=== PATIENT | female | born 1975 | race American Indian/Alaskan Native ===

== ENCOUNTER 2016-10-17 08:42 | Outpatient (CLI) | payer OTHER ==
[2016-10-17] MEDS ORDERED: NACL ONE (09:23)
--- NOTE | 2016-10-17 10:02 | Cat Scan Report ---
CT CHEST WITH CONTRAST: HISTORY: Lung nodule. TECHNIQUE: Helical CT following IV contrast. Sagittal and coronal reformatted images. FINDINGS: There are scattered small calcified granulomas in the lingula and middle lobe. No suspicious pulmonary nodule or mass. Heart size is normal. There is no evidence of adenopathy within the mediastinum. Pulmonary teresa are free of any mass and the lungs are clear of infiltrates. The pleura is unremarkable. No masses involve the chest wall. No abnormalities are noted within the upper abdomen. The adrenal glands are normal. IMPRESSION: Chronic granulomatous disease. No suspicious pulmonary nodule. Otherwise, unremarkable CT chest with contrast.
--- NOTE | 2016-10-17 10:59 | Mammography Report ---
BILATERAL MAMMOGRAM with CAD: HISTORY: Baseline cancer screening. FINDINGS: The breast tissue is extremely dense (>75% glandular). This may lower the sensitivity of mammography. No mass, distortion, suspicious calcification, or skin change is seen. IMPRESSION: Negative mammogram. There is no mammographic evidence of malignancy. RECOMMENDATION: Follow-up per ACS guidelines. BI-RADS CATEGORY: 1 = Negative ACR BI-RADS MAMMOGRAPHIC CODES: 0 = Needs additional imaging evaluation; 1 = Negative; 2 = Benign; 3 = Probably benign; 4 = Suspicious; 5 = Malignant; 6 = Known biopsy-proven malignancy COMMENT: 1. Dense breast tissue, i.e., adenosis, fibrocystic changes, etc., may obscure an underlying neoplasm. 2. Approximately 10% of cancers are not detected with mammography. 3. A negative mammography report should not delay biopsy if a clinically suspicious mass is present. COMMENT: Patient follow-up letters are generated in [employer].
== END 2016-10-17 08:43 | disposition home or self-care (01) ==
LOC: MAMMO 08:42
PROVIDERS: ATTEND Family Medicine
DX: Z12.31 Encounter for screening mammogram for malignant neoplasm of breast (principal); R91.1 Solitary pulmonary nodule; J84.10 Pulmonary fibrosis, unspecified; D71 Functional disorders of polymorphonuclear neutrophils
CPT/HCPCS: 71260; G0202; Q9967; 77067

== ENCOUNTER 2017-10-19 09:38 | Outpatient (CLI) | payer OTHER ==
--- NOTE | 2017-10-21 11:29 | Mammography Report ---
BILATERAL DIGITAL SCREENING MAMMOGRAM with CAD: 10/19/17 09:38:00 CLINICAL: Routine screening. COMPARISON:10/17/16 FINDINGS: The breasts are heterogeneously dense, which may obscure small masses and the density is sufficient to limit the sensitivity of mammography. A right asymmetry on the CC view requires additional imaging. No architectural distortion or suspicious calcifications. The left breast is negative. IMPRESSION: Right asymmetry requiring additional imaging. BI-RADS CATEGORY: 0--Needs Additional Imaging RECOMMENDATION: Recall for right lateralmedial and spot compression MLO views and right breast ultrasound if needed. COMMENT: Patient follow-up letters are generated by our [employer] application.
== END 2017-10-19 09:39 | disposition home or self-care (01) ==
LOC: MAMMO 09:38
PROVIDERS: ATTEND Family Medicine
DX: Z12.31 Encounter for screening mammogram for malignant neoplasm of breast (principal)
CPT/HCPCS: 77067

== ENCOUNTER 2017-11-06 08:42 | Outpatient (CLI) | payer OTHER ==
--- NOTE | 2017-11-06 09:23 | Mammography Report ---
RIGHT DIGITAL DIAGNOSTIC MAMMOGRAM : 11/06/17 08:42:00 CLINICAL: Recalled for asymmetry. COMPARISON:10/19/17 screening FINDINGS: Lateralmedial and spot compression the CC views were performed and are negative. IMPRESSION: Negative Mammogram. BI-RADS CATEGORY: 1 -- Negative RECOMMENDATION: Routine mammographic screening in one year. ACR BI-RADS MAMMOGRAPHIC CODES: 0 = Needs additional imaging evaluation; 1 = Negative; 2 = Benign; 3 = Probably benign; 4 = Suspicious; 5 = Malignant; 6 = Known biopsy-proven malignancy COMMENT: 1. Dense breast tissue, i.e., adenosis, fibrocystic changes, etc., may obscure an underlying neoplasm. 2. Approximately 10% of cancers are not detected with mammography. 3. A negative mammography report should not delay biopsy if a clinically suspicious mass is present. COMMENT: Patient follow-up letters are generated via our [employer] application.
== END 2017-11-06 08:43 | disposition home or self-care (01) ==
LOC: MAMMO 08:42
PROVIDERS: ATTEND Family Medicine
DX: R92.8 Other abnormal and inconclusive findings on diagnostic imaging of breast (principal)